=== PATIENT | male | born 1970 | race Caucasian/White ===

== ENCOUNTER 2020-12-24 02:22 | Day surgery (SDC) | payer BC, SELFPAY ==
[2020-12-20 17:16] VITALS: BMI 23.1
--- NOTE | 2020-12-24 06:14 | PM.SD2 ---
Same Day Admit/Disch: HPI History of Present Illness Chief complaint: rt fluoroscopy, subcutaneous mass of right forearm Narrative: Raj Garzno is a 50 year old male who noticed a bulge in the right groin back in October. He was seen in the office and found to have a reducible symptomatic right inguinal hernia. He also has a subcutaneous nodule on his right forearm that is thought to be a varicose vein or possibly a lipoma. He is taken to surgery now for right inguinal hernia repair as well as excision of the right forearm subcutaneous nodule. [facility] Past Medical History Medical History Gastroesophageal reflux disease without esophagitis Pre-diabetes Surgical History Surgical History History of bowel resection October 2018 History of umbilical hernia repair October 2018 History of ventral hernia repair recurrent ventral incisional hernia with polypropylene mesh, bilateral transversus abdominis myofascial flap advancement, 6cm on the left, 5cm on the right 04/02/19 Family History Family History Father Family history of malignant neoplasm Grandparent Family history of malignant neoplasm Other Family history of lymphoma Social History Social History Smoking status: Never smoker Second hand tobacco smoke exposure: No Alcohol intake: current Drinks per week: 24 Substance use: never Living arrangements: with family Gender identity (if verbalized by the patient): Male Spiritual care concerns: No Agree to blood products: Yes Same Day Admit/Disch: Med Pre-admit Medications Home Medications Medication Instructions Recorded Confirmed Type hydrocodone-acetaminophen 1 - 2 tablet PO Q6H PRN #10 tablet 12/24/20 Rx ketorolac 10 mg PO Q6H 4 Days #16 tablet 12/24/20 Rx Exam Const: General: comfortable, no acute distress, alert and awake HENMT: Head: normocephalic and atraumatic Mouth: Yes Normal oral and palatal mucosa present Eyes: Conjunctivae: conjunctivae normal Pupils: Equal, round and reactive pupils present EOM: EOMs intact bilaterally Neck: Neck: normal visual inspection, no lymphadenopathy and nontender Resp: Effort & Inspection: normal respiratory effort Auscultation: clear to auscultation bilaterally Cardio: Rate: regular rate Rhythm: regular rhythm Heart sounds: no gallops, no murmurs and no rubs GI: Inspection: non-distended GI Palp: Yes Soft to palpation, No Tenderness to palpation present (GI), No Hepatomegaly present and No Splenomegaly present : Male General Exam: Yes normal external exam and Yes hernia ( Reducible right inguinal hernia) Penis: Yes normal penis Scrotum: scrotum normal Testes: Testes normal Skin: Lesions: no lesions Rashes: no rashes Neuro: General: no focal motor deficits and CN's II-XI intact bilaterally Cranial nerves: Yes Equal, round and reactive pupils present, Yes Bilaterally intact EOM present, Yes facial symmetry and Yes Midline tongue present Speech: normal speech Motor exam (neuro): 5/5 motor strength present throughout and Motor abnormalities not present Extrem: General: no clubbing, cyanosis or edema and edema Right upper extremity: elbow/forearm ( smooth nontender, soft 1.5 cm subcutaneous nodule forearm) Psych: Affect: normal affect Thought process: Normal thought process present Insight: Good insight present (Psych) DS: Summary Time Spent with Patient Time attestation: Total time spent providing and/or coordinating discharge services: DS: Admitting Diagnosis Admitting Diagnosis right inguinal hernia - reducible and symptomatic. Plan to proceed with right inguinal hernia repair under anesthesia. Procedure the risks benefits have been discussed with the patient. All questions were answered. He understands and agrees
--- NOTE | 2020-12-24 06:18 | WPDHPUPDATE1 ---
History and Physical Update Update Date/Time: 12/24/20 06:18 History and Physical has been reviewed, including an updated exam of the patient. There are NO changes in the patient's condition. Risks, benefits, and alternatives have been discussed and questions answered. Patient agrees to proceed with procedure.
[2020-12-24] MEDS: ACETAMINOPHEN 500 MG TABLET 1000 MG PO (06:41)
[2020-12-24] MEDS: KETOROLAC 15 MG/ML VIAL (*BKC) IV PUSH (06:48)
[2020-12-24] MEDS: LACTATED RINGERS 1,000 ML 30 ML IV CONT ×2 (06:51→08:48)
[2020-12-24 07:03] VITALS: BP 125/71; PULSE 70; RESP 16; TEMP 36.7; O2SAT 99
--- NOTE | 2020-12-24 07:15 | WPDANESEPPF ---
Anes - Initial Pre Proc Eval Procedure: Operation Date: 12/24/20 07:30 Proposed Procedures p Right Inguinal Hernia Repair - Liu San MD s Excision Subcutaneous Mass Right Forearm - Liu San MD Date/Time: 12/24/20 07:15 Surgeon: Liu San MD Pre Op Diagnosis: rt fluoroscopy, subcutaneous mass of right forearm Patient Data Age: 50 Gender: M Height: 1.8 m Weight: 72.15 kg Last Vital Signs Temp 98.1 F 12/24/20 07:03 Pulse 70 12/24/20 07:03 Resp 16 12/24/20 07:03 BP 125/71 12/24/20 07:03 Pulse Ox 99 12/24/20 07:03 Allergies Allergy/AdvReac Type Severity Reaction Status Date / Time No Known Allergies Allergy Verified 12/24/20 07:01 Home Medications Medication Instructions Recorded Confirmed Type No Home Medications 12/20/20 12/24/20 History Patient hx anesthesia problems: none Family hx anesthesia problems: none [facility] Past Medical History Medical History (Updated 11/22/20 @ 09:39 by Ifeoma Morse) Gastroesophageal reflux disease without esophagitis Pre-diabetes Surgical History Surgical History (Updated 05/01/19 @ 09:24 by Starr Hodge) History of bowel resection October 2018 History of umbilical hernia repair October 2018 History of ventral hernia repair recurrent ventral incisional hernia with polypropylene mesh, bilateral transversus abdominis myofascial flap advancement, 6cm on the left, 5cm on the right 04/02/19 Family History Family History Father Family history of malignant neoplasm Grandparent Family history of malignant neoplasm Other Family history of lymphoma Social History Social History Smoking status: Never smoker Second hand tobacco smoke exposure: No Alcohol intake: current Drinks per week: 24 Substance use: never Living arrangements: with family Gender identity (if verbalized by the patient): Male Spiritual care concerns: No Agree to blood products: Yes Anes - Eval Final PreProcedure Day of Procedure 12/24/20 07:15 Patient weight: normal Heart: regular rate and rhythm Lungs: clear to auscultation Airway: Mallampati scale class II Neurological: alert and oriented Last oral intake: >/= 8 hours ASA classification: II Emergent: no Anesthetic plan: proceed Anesthesia type and monitoring: general and standard monitoring Informed Consent: The patient's anesthetic plan and its attendant risks and benefits were discussed with the patient/family/POA. Questions were solicited and answers provided to the satisfaction of the patient/family/POA.
[2020-12-24] MEDS: ceFAZolin 2 GM/D5W 50 ML 2 GM/50 ML BAG IVPB (07:25)
[2020-12-24] MEDS: BUPIVACAINE/EPINEPHRINE 0.5% 10 ML VIAL 50 ML INFILTRATE (08:01)
[2020-12-24 08:48] VITALS: BP 80/48; PULSE 64; RESP 12; O2SAT 99
--- NOTE | 2020-12-24 08:59 | W.PM.PROC2 ---
Procedure Note - Detailed Date of Procedure 12/24/20 Pre-op Diagnosis Right inguinal hernia, subcutaneous mass right forearm Post-op Diagnosis other (Right inguinal hernia, dilated vein or varix right forearm) Procedure Performed Right inguinal hernia repair with 6 cm Parietex hernia mesh system, excision varix right forearm Surgeon Liu San MD [employer] Anesthesia MAC and local (0.5% Marcaine with epinephrine) Indications Patient has noticed a bulge with some discomfort in the right groin. Exam showed this to be an inguinal hernia. He also has a smooth 1.5 cm nodule of the right forearm which is occasionally painful. He is taken to surgery to have right inguinal hernia repair and excision of the subcutaneous nodule. Findings Indirect right inguinal hernia. Dilated forearm vein or varix. Description of Procedure Patient was seen in the preoperative holding area. The area of the right groin and right forearm lesion were marked on the skin. He was taken to surgery and IV sedation was administered. Prep and drape of the right groin as well as the right dorsal forearm was carried out. We started with the right inguinal hernia. The proposed incision was marked on the skin. Local was infiltrated into the skin and the deeper subcutaneous tissues. Incision was made dissection was carried down through the subcutaneous. Crossing veins were cauterized and divided. We continued dissection down to the external oblique aponeurosis. The aponeurosis was exposed as was the external ring. Additional local was infiltrated deep to the aponeurosis. The aponeurosis was then opened laterally and this was extended medially through the external ring. The leaves the aponeurosis were dissected free from the underlying spermatic cord and inguinal canal contents. Care was taken to avoid injury to the ilioinguinal nerve which was left attached to the cord throughout the surgery. We then mobilized the cord medially on a [place] drain. It was further mobilized back to the internal ring. We dissected in the anteromedial aspect of the spermatic cord and found the hernia sac. We dissected the sac free of the cord contents. It was then dissected back to a high dissection. It was dunked into the retroperitoneum. A 6 cm Parietex nome was chosen. It was folded deform a plug. The plug was then placed in the defect. The edges were sutured to the transversalis fascia with interrupted 3 0 Vicryl suture. We then cut the patch to the appropriate size. Additional local was infiltrated into the inguinal canal floor. The patch was then laid over the inguinal canal floor with a lateral leaves passing beyond the cord. The cord and ilioinguinal nerve were then laid over the patch. We closed the external oblique aponeurosis with interrupted 3 0 Vicryl suture. Felisa's fascia was closed with interrupted 3 0 Vicryl suture. The skin was closed with interrupted 4 0 Vicryl subcuticular suture. Finally the skin was closed with a running 4 0 Monocryl skin suture. From there we then turned our attention to the dorsum of the right forearm where the previous subcutaneous nodule at been marked and identified. Local was infiltrated over the anticipated incision. Incision was then made and dissection carried down to the nodule. At this point, it was clear that this was a varix as it was purple and associated with some other venous structures. We dissected the varix clear of the surrounding subcutaneous tissues. The associated veins traveling to and from the varix were then securely clipped and divided. The varix was passed off to pathology as a specimen. The wound was made hemostatic with the cautery. It was closed with subcuticular interrupted 4 0 Vicryl skin stitches followed by a running 4 0 Monocryl skin suture. Both wounds were dressed with Exofin surgical adhesive. Patient was then awakened and taken to recovery in good condition. Sponge and needle counts were co
[2020-12-24 09:15] VITALS: BP 120/76; PULSE 76; RESP 20
[2020-12-24 09:45] VITALS: BP 112/72; PULSE 72; RESP 20
[2020-12-24 10:15] VITALS: BP 114/82; PULSE 65; RESP 20
== END 2020-12-24 10:34 | disposition home or self-care (01) ==
PROVIDERS: PCP Family Medicine; Visit Provider Surgery
PROC: (CPT 49505; principal; 2020-12-24 07:30)
PROC: (CPT 49505; 2020-12-24 07:30)
DX: K40.90 Unilateral inguinal hernia, without obstruction or gangrene, not specified as recurrent (principal); M67.431 Ganglion, right wrist; K21.9 Gastro-esophageal reflux disease without esophagitis; R73.03 Prediabetes
CPT/HCPCS: 49505; 25111; 88304; A9270; C1781; C9290; J0690; J1100; J1885; J2250; J2405; J2704; J7120

== ENCOUNTER 2024-03-06 06:11 | Day surgery (SDC) | payer OTHER, SELFPAY ==
[2024-01-24 07:12] VITALS: BMI 24.4
[2024-03-06 07:01] VITALS: BP 135/87; PULSE 79; RESP 18; TEMP 36.6; O2SAT 100; BMI 22.8
--- NOTE | 2024-03-06 07:12 | PM.HPGS ---
History of Present Illness History of Present Illness Consent: Risks, benefits, and alternatives have been discussed and questions answered. Patient agrees to proceed with procedure. Chief complaint: Screening for Neoplasm of Colon Narrative: Raj Garzon is a 53 year old male presents for screening colonoscopy. Patient has current weight appetite and bowel movements are normal. Patient denies abdominal pain. He has had no bleeding. Family history is noncontributory. Patient has a history of incarcerated umbilical hernia. He did require partial bowel resection at the time of repair. Review of Systems Review of Systems: All systems reviewed & are unremarkable except as noted in HPI and below PMFSH Past Medical History Medical History (Updated 03/06/24 @ 07:13 by Nigel Alexandre MD) Atopic dermatitis Gastroesophageal reflux disease without esophagitis Pre-diabetes Surgical History Surgical History H/O excision of mass right upper back mass. H/O right inguinal hernia repair 12/24/20 Right inguinal hernia repair with 6 cm Parietex hernia mesh system, excision varix right forearm History of bowel resection October 2018 History of umbilical hernia repair October 2018 History of ventral hernia repair recurrent ventral incisional hernia with polypropylene mesh, bilateral transversus abdominis myofascial flap advancement, 6cm on the left, 5cm on the right 04/02/19 Family History Family History Father Family history of malignant neoplasm Grandparent Family history of malignant neoplasm Other Family history of lymphoma Social History Social History Smoking status: Never smoker Second hand tobacco smoke exposure: No Alcohol intake: current Drinks per week: 24 Substance use: never Substance use type: does not use Living arrangements: with family Gender identity (if verbalized by the patient): Male Spiritual care concerns: No Agree to blood products: Yes Meds Home Medications and Allergies Home Medications Medication Instructions Recorded Confirmed Type No Home Medications 03/06/24 03/06/24 History Allergies Allergy/AdvReac Type Severity Reaction Status Date / Time No Known Allergies Allergy Verified 03/06/24 06:51 Vital Signs Vital Signs - 24 hr 03/06/24 07:01 Temperature 98 F Pulse Rate 79 Respiratory Rate 18 Blood Pressure 135/87 Pulse Oximetry 100 Oxygen Delivery Room Air Exam Narrative: Physical exam reveals patient to be alert. Signs stable. HEENT exam is unremarkable. Patient is anicteric. Lungs are clear to auscultation and to percussion heart is without murmur or extra sounds. Abdomen bowel sounds are present soft nontender with no organomegaly. Digital external rectal exam normal. Assessment and Plan Assessment and plan (1) Screen for colon cancer: Code(s): Z12.11 - Encounter for screening for malignant neoplasm of colon Status: Acute Assessment and Plan: Patient presents for screening colonoscopy. He appears to be at average risk for colon polyps. Further recommendations may be given after endoscopy.
[2024-03-06] MEDS: LACTATED RINGERS 1,000 ML 150 ML IV CONT (07:14)
--- NOTE | 2024-03-06 07:52 | P.PNAN_ITS ---
Anes - Initial Pre Proc Eval Procedure: Operation Date: 03/06/24 08:00 Proposed Procedures p Screening Colonoscopy - Nigel Alexandre MD Date/Time: 03/06/24 07:52 Surgeon: Nigel Alexandre MD Pre Op Diagnosis: neoplasm screening Pre Op Diagnosis: Screening for Neoplasm of Colon Patient Data Age: 53 Gender: M Height: 1.8 m Weight: 74.4 kg Last Vital Signs Temp 36.6 C 03/06/24 07:01 Pulse 79 03/06/24 07:01 Resp 18 03/06/24 07:01 BP 135/87 03/06/24 07:01 Pulse Ox 100 03/06/24 07:01 O2 Del Method Room Air 03/06/24 07:01 Allergies Allergy/AdvReac Type Severity Reaction Status Date / Time No Known Allergies Allergy Verified 03/06/24 06:51 Home Medications Medication Instructions Recorded Confirmed Type No Home Medications 03/06/24 03/06/24 History Patient hx anesthesia problems: none Family hx anesthesia problems: none Results Review: All pre-operative results and documents have been reviewed as part of the pre- operative evaluation. [facility] Past Medical History Medical History Atopic dermatitis Gastroesophageal reflux disease without esophagitis Pre-diabetes Surgical History Surgical History H/O excision of mass right upper back mass. H/O right inguinal hernia repair 12/24/20 Right inguinal hernia repair with 6 cm Parietex hernia mesh system, excision varix right forearm History of bowel resection October 2018 History of umbilical hernia repair October 2018 History of ventral hernia repair recurrent ventral incisional hernia with polypropylene mesh, bilateral transversus abdominis myofascial flap advancement, 6cm on the left, 5cm on the right 04/02/19 Family History Family History Father Family history of malignant neoplasm Grandparent Family history of malignant neoplasm Other Family history of lymphoma Social History Social History Smoking status: Never smoker Second hand tobacco smoke exposure: No Alcohol intake: current Drinks per week: 24 Substance use: never Substance use type: does not use Living arrangements: with family Gender identity (if verbalized by the patient): Male Spiritual care concerns: No Agree to blood products: Yes Anes - Eval Final PreProcedure Day of Procedure 03/06/24 07:52 Patient weight: normal Heart: regular rate and rhythm Lungs: normal air movement Airway: Mallampati scale class II Neurological: alert and oriented Last oral intake: >/= 8 hours ASA classification: II Emergent: no Anesthetic plan: proceed Anesthesia type and monitoring: general GIVS and standard monitoring Results Review: All pre-operative results and documents have been reviewed as part of the pre- operative evaluation. Informed Consent: The patient's anesthetic plan and its attendant risks and benefits were discussed with the patient/family/POA. Questions were solicited and answers provided to the satisfaction of the patient/family/POA.
[2024-03-06 08:18] VITALS: BP 122/88; PULSE 71; RESP 14; O2SAT 100
[2024-03-06 08:28] VITALS: BP 109/90; PULSE 65; RESP 15; O2SAT 100
[2024-03-06 08:38] VITALS: BP 128/88; PULSE 66; RESP 15; O2SAT 100
--- NOTE | 2024-03-06 11:38 | WPDANESPN ---
Anes - Prog Note Post-Op Date/Time: 03/06/24 11:38 Cardiovascular status: normal Respiratory status: normal Airway patency: baseline Mental status: baseline Post-Op hydration status: normal Vital Signs: Last Vital Signs Temp 36.6 C 03/06/24 07:01 Pulse 66 03/06/24 08:38 Resp 15 03/06/24 08:38 BP 128/88 03/06/24 08:38 Pulse Ox 100 03/06/24 08:38 O2 Del Method Room Air 03/06/24 08:38 Pain Score (VAS): 0 I/O: Intake & Output 03/05/24 03/06/24 03/06/24 23:59 07:59 15:59 Intake Total 700 Balance 700 Post-procedural complaints: none Patient Feedback: Patient satisfied with anesthetic care. Other Findings: Patient vital signs back to baseline. Patient denies nausea and vomiting. Patient's pain under control. Patient OK for discharge.
== END 2024-03-06 08:47 | disposition home or self-care (01) ==
PROVIDERS: PCP Family Medicine; Visit Provider Internal Medicine Gastroenterology
PROC: 0DJD8ZZ Inspection of Lower Intestinal Tract, Via Natural or Artificial Opening Endoscopic (ICD-10-PCS; CPT 45378; principal; 2024-03-06 08:00)
DX: Z12.11 Encounter for screening for malignant neoplasm of colon (principal); K64.8 Other hemorrhoids
CPT/HCPCS: 45378